=== PATIENT | male | born 1980 | race Caucasian/White ===

== ENCOUNTER 2018-05-22 18:49 | Emergency (ER) | payer OTHER ==
--- NOTE | 2018-05-22 19:27 | RAD ---
LEFT ANKLE THREE VIEWS: 05/22/18 HISTORY: Left ankle pain. Injury, trauma. FINDINGS/IMPRESSION: No fracture or dislocation is identified. The ankle mortise is maintained. POS: [id number]
== END 2018-05-22 20:15 | disposition home or self-care (01) ==
LOC: NAV ERS 18:49
DX: S93.402A Sprain of unspecified ligament of left ankle, initial encounter (principal); X50.9XXA Other and unspecified overexertion or strenuous movements or postures, initial encounter